=== PATIENT | male | born 1995 | race Caucasian/White ===

== ENCOUNTER 2016-09-26 09:00 | Emergency (ER) | payer SELFPAY ==
[~2016-09-26] VITALS: Ht 175.3 cm; Wt 71.7 kg
[2016-09-26 09:07] VITALS: Ht 175.3 cm; Wt 71.7 kg
[2016-09-26] MEDS ORDERED: IBUPROFEN 600 MG TAB PO STA (09:46)
--- NOTE | 2016-09-26 09:50 | EMERGENCY ROOM VISIT NOTE ---
History First contact with patient: 09:11 Chief Complaint: FEVER Stated Complaint: FEVER,SORE THROAT, BODY ACHES History of Present Illness The patient is a 21 year old male who presents to the Emergency Room with complaints of fever and sore throat. The patient states that his symptoms started 3 days ago. He has had sore throat, swollen glands and fever. He states his temperature was 101-102F at home. He reports feeling achy and having chills. He states that the sore throat and trouble swallowing is the most pressing symptom. He rates his discomfort a 10/10. He denies any earache. He denies any cough or trouble breathing. He denies abdominal pain, nausea or vomiting. He denies any diarrhea. 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 Review of Systems A 10 system review of systems was completed with positives and pertinent negatives listed in the HPI. Past Medical/Surgical History none Social History Smoking Status: Never Smoker Marital Status: single Occupation Status: [employer] student Current/Historical Medications Scheduled Amoxicillin (Amoxil), 500 MG PO TID Physical Exam Vital Signs Date Time Temp Pulse Resp B/P (MAP) Pulse Ox O2 Delivery O2 Flow Rate FiO2 09/26/16 10:42 37.9 94 18 120/62 97 09/26/16 09:07 39.2 103 20 108/51 98 Room Air Physical Exam VITALS: Vitals are noted on the nurse's note and reviewed by myself. Vital signs stable. The patient is febrile. His temperature is 39.2C. GENERAL: This is a 21-year-old male, in no acute distress, nondiaphoretic, well- developed well-nourished. SKIN: The skin was without rashes, erythema, edema, or bruising. There is no tenting of the skin. Capillary reflex less than 2 seconds. HEAD: Normocephalic atraumatic. EARS: External auditory canals clear, tympanic membranes pearly wayne without erythema or effusion bilaterally. EYES: Pupils equal round and reactive to light and accommodation. Conjunctivae without injection, sclerae without icterus. Extraocular movements intact. NOSE: Patent, turbinates without inflammation or discharge. MOUTH: Mucous membranes moist. The tonsils are bilaterally enlarged, erythematous with exudate. The uvula is midline. There is no drooling, trismus or soft palate involvement. Airway patent. Tongue does not deviate. NECK: Supple without nuchal rigidity. There is anterior cervical lymphadenopathy. No thyromegaly. Cervical spine is nontender. No JVD. HEART: Regular rate and rhythm without murmurs gallops or rubs. LUNGS: Clear to auscultation bilaterally without wheezes, rales or rhonchi. No retractions or accessory muscle use. MUSCULOSKELETAL: No muscle atrophy, erythema, or edema noted. Full range of motion in all extremities. Strength 5/5 throughout. NEURO: Patient was alert and oriented to person place and time. No focal neurological deficits. Medical Decision & Procedures Medications Administered Medications (Trade) Dose Ordered Sig/Lyla Route Start Time Stop Time Status Last Admin Dose Admin Ibuprofen (Motrin Tab) 600 mg NOW STAT PO 09/26/16 09:46 09/26/16 09:47 DC 09/26/16 10:05 600 MG ED Course The patient was seen and examined. Previous visits were reviewed. The patient was febrile. The patient has exudative tonsillitis. There is no evidence for abscess, no drooling, trismus, soft palate involvement, uvula deviation. Rapid strep was negative and a backup culture is pending. The patient also has anterior cervical lymphadenopathy and an odor of strep on his breath. I advised the patient that even though the rapid strep is negative, I will still treat him with antibiotics based on clinical presentation. I did offer to perform a more significant evaluation including laboratory studies. I do not feel that a mono test would be positive this early in the disease. The patient declines and would like to try the conservative management first. The patient should return to the ER with any worsening symptoms. He should recheck with [facility] on Saturday if he is not feeling any better. He should return sooner with any worsening symptoms. Medical Decision The differential diagnosis includes influenza, strep pharyngitis, mononucleosis , viral illness, among others Impression Primary Impression: Exudative tonsillitis Additional Impression: Fever Departure Information Dispostion Home / Self-Care Condition GOOD Prescriptions Amoxicillin (AMOXIL) 500 Mg Tab 500 MG PO TID for 10 Days, #30 TAB Prov: Tess Clarke PA-C 09/26/16 Referrals No Doctor, Assigned (PCP) Patient Instructions ED Strep Pharyngitis Darlene Mccray [facility] Additional Instructions Motrin 600 mg every 6-8 hours for pain/fever Tylenol 1 g every 6 hours if needed. Do not take more than 4 g of Tylenol in 24 hours. Amoxicillin every 8 hours for 10 days Recheck with [facility] on Saturday if the symptoms have not improved. Return with any worsening symptoms, drooling, trouble opening the mouth or generalized worsening symptoms. Problem Qualifiers Additional Impression: Fever Fever type: unspecified Qualified Codes: R50.9 - Fever, unspecified
[2016-09-26] MEDS ORDERED: AMOX500T3 PO (10:21)
[2016-09-26 10:42] VITALS: BP 120/62; PULSE 94; TEMP 37.9; O2SAT 97
--- NOTE | 2016-09-28 13:12 | Pharmacy Progress Note ---
ED Pharmacist Culture FollowUp Date of Service: Sep 28, 2016. Back-up grp-A strep culture is growing Group C Strep. The patient was dx with bacterial tonsillitis and given Rx for Amoxil 500mg PO TID x 10 days. This abx will cover Group C Strep as well, therefore no action required.
== END 2016-09-26 10:43 | disposition home or self-care (01) ==
LOC: C.EDB 09:02
DX: J03.90 Acute tonsillitis, unspecified (principal)